=== PATIENT | female | born 1965 | race Caucasian/White ===

== ENCOUNTER 2022-01-26 06:46 | Day surgery (SDC) | payer MEDICAID ==
[~2022-01-26] VITALS: Ht 152.4 cm; Wt 108.9 kg
[2022-01-26] MEDS ORDERED: MIDAZOLAM HCL 5 MG/5 ML VIAL ONE ×2 (08:05→10:02)
[2022-01-26] MEDS ORDERED: MEPERIDINE 100 MG INJ. 100 MG/ML VIAL ONE (08:05)
[2022-01-26 11:35] VITALS: BP_SYST 130
== END 2022-01-26 11:15 | disposition home or self-care (01) ==
LOC: SMU 06:46 → SDS 06:46 → SMU 06:48 → SDS 11:15
PROVIDERS: ATTEND Internal Medicine Gastroenterology
DX: Z12.11 Encounter for screening for malignant neoplasm of colon (principal); D12.3 Benign neoplasm of transverse colon; K57.30 Diverticulosis of large intestine without perforation or abscess without bleeding; K64.8 Other hemorrhoids; E11.9 Type 2 diabetes mellitus without complications; I10 Essential (primary) hypertension; E78.5 Hyperlipidemia, unspecified; F17.210 Nicotine dependence, cigarettes, uncomplicated; Z88.5 Allergy status to narcotic agent; Z20.822 Contact with and (suspected) exposure to COVID-19
CPT/HCPCS: 36415 ×2; 45380; 82962; 87426; 88305; 99152; G0378; J2175; J2250; U0003